=== PATIENT | female | born 2000 | race Caucasian/White ===

== ENCOUNTER 2024-08-14 21:52 | Emergency (ER) | payer SELFPAY ==
[~2024-08-14] VITALS: Ht 154.9 cm; Wt 67.0 kg
[2024-08-14 22:05] VITALS: BP 131/92; PULSE 82; RESP 16; TEMP 36.8; O2SAT 99
[2024-08-14 23:03] LABS: BASOPHILS % 0.8 % (0.0-2.0); EOSINOPHILS % 9.2 % (0.0-5.0); HEMATOCRIT. 38.9 % (36.0-48.0); HEMOGLOBIN. 13.2 g/dL (12.0-16.0); LYMPHOCYTES % 35.3 % (20.0-50.0); MEAN CORPUSCULAR HEMOGLOBIN 31.7 pg (28.0-32.0); MEAN CORPUSCULAR VOLUME 93.1 fL (81.0-99.0); MEAN PLATELET VOLUME 7.4 fl (7.4-10.4); MONOCYTES % 12.5 % (2.0-8.0); NEUTROPHILS % 42.2 % (40.0-76.0); PLATELET 274 x1000/uL (130-400); RED BLOOD CELL COUNT 4.17 mill/uL (4.2-5.4); RED CELL DISTRIBUTION WIDTH 12.5 % (11.6-14.6); WHITE BLOOD COUNT 6.8 x1000/uL (4.5-11.0)
[2024-08-14 23:09] LABS: CHLORIDE 107 mEq/L (98-107); SODIUM 141 mEq/L (136-145)
[2024-08-14 23:10] LABS: CARBON DIOXIDE 27 mEq/L (21-32)
[2024-08-14 23:11] LABS: CALCIUM 9.4 mg/dL (8.7-10.4)
[2024-08-14 23:15] LABS: CREATININE 0.8 mg/dL (0.6-1.0); GLUCOSE 89 mg/dL (70-105); UREA NITROGEN BLOOD 16 mg/dL (9-23)
[2024-08-15 00:01] LABS: TROPONIN I HIGH SENSITIVITY < 4 ng/L (3.0-34)
== END 2024-08-15 01:21 | disposition left against medical advice (07) ==
LOC: ER 21:52
DX: R07.9 Chest pain, unspecified (principal); J45.909 Unspecified asthma, uncomplicated; Z53.21 Procedure and treatment not carried out due to patient leaving prior to being seen by health care provider
CPT/HCPCS: 36415; 71045; 80048; 81025; 84484; 85025; 93005; 99283